=== PATIENT | male | born 1965 | race Caucasian/White ===

== ENCOUNTER 2023-03-10 08:49 | Outpatient (CLI) | payer MEDICAID, SELFPAY ==
--- NOTE | 2023-03-10 09:30 | MR_ITS ---
WS: [id number] MRI HEAD WITH CONTRAST TECHNIQUE: Sagittal T1, T2 axial, T2 axial FLAIR, axial susceptibility weighted imaging, axial diffus ion weighted images, and coronal T2 images were obtained. Pre and post-T1 axial and post T1 coronal i mages. ADC and FSPGR images. 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 COMPARISON: None. FINDINGS: No evidence of restricted diffusion to suggest acute ischemia. Ventricular system and basal cisterns are patent. Moderate patchy supratentorial white matter lesions mainly in the periventricular and sub cortical distribution. Bulky periventricular lesions suspicious for demyelinating disease. No enhanci ng lesions to indicate active disease. Mild parenchymal volume loss. Bulky periventricular lesions demonstrate T1 hypointensity. Numerous pericallosal lesions. No signifi cant atrophy of the corpus callosum. No visualized posterior fossa lesions. Normal vascular flow voids at the skull base. No extra-axial f luid collections. Partial opacification RIGHT frontal sinus. Mastoid air cells are well aerated. Norm al posterior nasopharynx. Mild mucosal thickening in the paranasal sinuses. No hemosiderin on the susceptibly weighted images. Normal optic chiasm and pituitary infundibulum. IMPRESSION: 1. No evidence of restricted diffusion to suggest acute ischemia. 2. Moderate patchy supratentorial white matter changes suspicious for demyelinating disease. 3. No enhancing lesions to indicate active disease. 4. Moderate T1 hypointense lesion load. 5. Numerous pericallosal lesions. No significant atrophy of the corpus callosum. 6. Mild parenchymal volume loss.
[2023-03-10] MEDS: gadobenate dimeglumine 20 mL vial IV (10:48)
== END 2023-03-10 08:50 | disposition home or self-care (01) ==
LOC: RAD 08:50
PROVIDERS: PCP Family Medicine; Visit Provider Specialist
DX: G37.9 Demyelinating disease of central nervous system, unspecified (principal); R29.90 Unspecified symptoms and signs involving the nervous system
CPT/HCPCS: 70553; A9577

== ENCOUNTER 2023-07-05 13:40 | Outpatient (CLI) | payer MEDICAID, SELFPAY ==
[2023-07-05 14:09] LABS: Basophils # 0.1 10^3/uL (0.0-0.1); Basophils % 0.7 %; Eosinophils # 0.2 10^3/uL (0.0-0.8); Eosinophils % 2.1 %; Hematocrit 47.4 % (37-53); Lymphocytes # 1.8 10^3/uL (0.8-4.8); Lymphocytes % 24.4 %; Mean Corpuscular HGB Conc 33.8 g/dL (30-55); Mean Corpuscular Hemoglobin 30.4 pg (27-33); Mean Corpuscular Volume 90.1 fl (82-101); Monocytes # 0.6 10^3/uL (0.2-0.9); Monocytes % 8.3 %; Neutrophils # 4.64 10^3/uL (1.8-7.7); Neutrophils % 64.2 %; Nucleated Red Blood Cells % 0 %; Platelet Count 225 10^3/cmm (157-399); Red Blood Count 5.26 10^6/uL (3.85-5.65); White Blood Count 7.22 10^3/uL (3.29-11.43)
[2023-07-05 14:28] LABS: Estmated Average Glucose 88; Hemoglobin A1C 4.7 % (4.0-6.0)
[2023-07-05 14:37] LABS: Alanine Aminotransferase 17 U/L (0-41); Albumin Level 4.1 g/dL (3.5-5.2); Alkaline Phosphatase 84 U/L (40-130); Anion Gap 13.4 (5-19); Aspartate Amino Transferase 15 U/L (0-40); Blood Urea Nitrogen 22 mg/dL (6-20); Calcium 8.8 mg/dL (8.5-10.5); Carbon Dioxide 26 mmol/L (22-29); Chloride 104 mmol/L (98-107); Chol HDL Ratio 3.38 mg/dL (1.0-5.00); Cholesterol 162 mg/dL (0-200); Globulin 2.9 g/dL (1.3-4.6); Glucose 85 mg/dL (65-115); HDL Cholesterol 48 mg/dL (60-100); LDL Cholesterol Calculated 96 mg/dL (50-129); Osmolality Calculated 291 mOsm/kg (285-295); Potassium 4.4 mmol/L (3.5-5.1); Sodium 139 mmol/L (136-145); Thyroid Stimulating Hormone 5.08 uIU/mL (0.27-4.20); Total Bilirubin 0.8 mg/dL (0.15-1.2); Triglycerides 89 mg/dL (0-150)
== END 2023-07-05 13:41 | disposition home or self-care (01) ==
LOC: LAB 13:44
PROVIDERS: PCP Family Medicine; Visit Provider Family Medicine
DX: I25.10 Atherosclerotic heart disease of native coronary artery without angina pectoris (principal)
CPT/HCPCS: 36415; 80053; 80061; 83036; 84443; 85025